=== PATIENT | female | born 1970 | race American Indian/Alaskan Native ===

== ENCOUNTER 2018-05-12 10:32 | Emergency (ER) | payer SELFPAY ==
[2018-05-12 10:59] VITALS: BMI 39.5
[2018-05-12 11:07] VITALS: BP 105/60; PULSE 71; RESP 18; TEMP 98.6; O2SAT 99
--- NOTE | 2018-05-12 12:32 | C.PDOC ---
History Of Present Illness Patient left without being seen Chief Complaint (Nursing): Abdominal Pain Past Medical History Vital Signs: Last Vital Signs Temp 98.6 F 05/12/18 10:59 Pulse 71 05/12/18 10:59 Resp 18 05/12/18 10:59 BP 105/60 05/12/18 10:59 Pulse Ox 99 05/12/18 12:32 - Medical History PMH: Anemia (chronic), Diverticulitis, HTN Surgical History: Cholecystectomy Family History: States: Unknown Family Hx - Social History Hx Alcohol Use: No Hx Substance Use: No - Immunization History Hx Tetanus Toxoid Vaccination: Yes Hx Influenza Vaccination: Yes Hx Pneumococcal Vaccination: No ED Course And Treatment O2 Sat by Pulse Oximetry: 99 Disposition - Disposition Disposition: ELOPEMENT - ER ONLY Disposition Time: 11:15 Condition: UNKNOWN Forms: [facility] ([facility]) - Clinical Impression Clinical Impression: Abdominal pain
== END 2018-05-12 11:16 | disposition left against medical advice (07) ==
LOC: C.ER 10:32
DX: Z02.89 Encounter for other administrative examinations (principal); R10.9 Unspecified abdominal pain